=== PATIENT | male | born 1995 | race Caucasian/White ===

== ENCOUNTER → 2021-06-10 | Outpatient (CLI) | payer OTHER ==
[2021-06-10 10:56] LABS: RED BLOOD COUNT 5.33 M/UL (4.20-5.50); WHITE BLOOD COUNT 8.2 K/UL (4.5-11.0)
[2021-06-10 11:17] LABS: BUN/CREATININE RATIO 12 (0-10)
[2021-06-11 08:12] LABS: SARS COV-2 SPIKE AB INTERP Positive (.); VITAMIN D, 25-HYDROXY 24.9 ng/mL (30.0-100.0)
[2021-06-12 12:09] LABS: SARS COV-2 IGM AB Negative (Negative)
[2021-06-12 20:09] LABS: SARS COV-2 IGA AB Negative (Negative)
== END ==
LOC: LAB 09:46
PROVIDERS: Nurse Practitioner
DX: R05.9 Cough, unspecified (principal); R53.83 Other fatigue; I10 Essential (primary) hypertension; E55.9 Vitamin D deficiency, unspecified; R12 Heartburn; R91.8 Other nonspecific abnormal finding of lung field; Z20.822 Contact with and (suspected) exposure to COVID-19; Z86.16 Personal history of COVID-19
CPT/HCPCS: 36415; 71046; 80053; 80061; 82043; 82607; 82746; 83036; 84443; 85025; 86769